=== PATIENT | female | born 2000 | race Caucasian/White ===

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

== ENCOUNTER 2018-12-02 11:04 | Emergency (ER) | payer OTHER ==
[2018-12-02 11:23] VITALS: BP 145/70; PULSE 70; TEMP 98.5; BMI 34.6
[2018-12-02] MEDS ORDERED: IBUPROFEN 400 MG TABLET (FP) PO ONE ×2 (11:56→11:58)
--- NOTE | 2018-12-02 12:02 | PDOC ---
History of Present Illness - General History Source: Patient - History of Present Illness Timing/Duration: reports: constant <Tonia MancillaManuel - Last Filed: 12/02/18 12:39> <Christina Estes - Last Filed: 12/02/18 15:19> - General Chief Complaint: Vaginal Bleeding Stated Complaint: Vaginal Bleeding Time Seen by Provider: 12/02/18 11:45 Past History - Past Medical History Asthma: Yes COPD: No - Immunization History Immunization Up to Date: Yes - Suicide/Smoking/Psychosocial Hx Smoking History: Current every day smoker Have you smoked in the past 12 months: No Number of Cigarettes Smoked Daily: 2 If you are a former smoker, when did you quit?: 2017 Information on smoking cessation initiated: No Hx Alcohol Use: No Drug/Substance Use Hx: Yes (MARIJUANA) <LaurentKirit - Last Filed: 12/02/18 12:39> <Christina Estes - Last Filed: 12/02/18 15:19> - Past Medical History Allergies/Adverse Reactions: Allergies Allergy/AdvReac Type Severity Reaction Status Date / Time No Known Allergies Allergy Verified 12/02/18 11:17 Home Medications: Ambulatory Orders Albuterol Sulfate Inhaler - [Ventolin Hfa Inhaler -] 2 inh PO Q6H PRN 02/20/17 Fluoxetine HCl [Prozac] 20 mg PO DAILY 02/20/17 Montelukast Na [Singulair -] 20 mg PO DAILY 02/20/17 Potassium 0 meq PO DAILY 02/20/17 Ciprofloxacin [Cipro -] 500 mg PO BID #14 tablet 02/21/17 Review of Systems - Review of Systems Constitutional: No: Chills, Fever ABD/GI: Yes: Abdominal cramping. No: Nausea, Vomiting : No: Dysuria, Flank Pain, Hematuria <LaoKirit - Last Filed: 12/02/18 12:39> *Physical Exam - Vital Signs Last Vital Signs Temp Pulse Resp BP Pulse Ox 98.5 F 70 16 145/70 100 12/02/18 11:17 12/02/18 11:17 12/02/18 11:17 12/02/18 11:17 12/02/18 11:17 - Physical Exam General Appearance: Yes: Appropriately Dressed. No: Apparent Distress HEENT: positive: Normal Voice Neck: positive: Supple Respiratory/Chest: negative: Respiratory Distress Gastrointestinal/Abdominal: positive: Soft. negative: Tender Musculoskeletal: negative: CVA Tenderness Integumentary: positive: Dry, Warm Neurologic: positive: Fully Oriented, Alert, Normal Mood/Affect <LaoMaidaJimbo - Last Filed: 12/02/18 12:39> - Vital Signs Last Vital Signs Temp Pulse Resp BP Pulse Ox 98.5 F 70 16 145/70 100 12/02/18 11:17 12/02/18 11:17 12/02/18 11:17 12/02/18 11:17 12/02/18 11:17 <Christina Estes - Last Filed: 12/02/18 15:19> Moderate Sedation - Procedure Monitoring Vital Signs: Procedure Monitoring Vital Signs Temperature 98.5 F 12/02/18 11:17 Pulse Rate 70 12/02/18 11:17 Respiratory Rate 16 12/02/18 11:17 Blood Pressure 145/70 12/02/18 11:17 O2 Sat by Pulse Oximetry (%) 100 12/02/18 11:17 <LaoMaidaMeliaGladys - Last Filed: 12/02/18 12:39> - Procedure Monitoring Vital Signs: Procedure Monitoring Vital Signs Temperature 98.5 F 12/02/18 11:17 Pulse Rate 70 12/02/18 11:17 Respiratory Rate 16 12/02/18 11:17 Blood Pressure 145/70 12/02/18 11:17 O2 Sat by Pulse Oximetry (%) 100 12/02/18 11:17 <Christina Estes - Last Filed: 12/02/18 15:19> ED Treatment Course - ADDITIONAL ORDERS Additional order review: Laboratory Results 12/02/18 11:54 Urine HCG, Qual Negative - Medications Given in the ED: ED Medications Discontinued Medications Generic Name Dose Route Start Last Admin Trade Name Freq PRN Reason Stop Dose Admin Ibuprofen 800 mg 12/02/18 11:56 12/02/18 12:14 Motrin - PO 12/02/18 11:57 800 mg ONCE ONE Administration <Christina Estes - Last Filed: 12/02/18 15:19> Medical Decision Making - Medical Decision Making 12/02/18 11:57 18 yo M, h/o irregular menses, LMP was 11/12, here w/ sharp lower abd pain in setting of menstrual bleeding this am. States she usually gets cramps w/ her menses but that pain today is worse now. Not on control See exam Pelvic pain in setting of m/l menstruation R/o preg -dose of motrin in ED 12/02/18 12:40 Preg test neg. Pain improved w/ motrin. Stable for dc w/ pain control <Kirit Mancilla - Last Filed: 12/02/18 12:39> *DC/Admit/Observation/Transfer <Kirit Mancilla - Last Filed: 12/02/18 12:39> - Attestations Physician Attestion: I reviewed the case with the mid-level practitioner and agree with the mid- level practitioner's assessment, diagnosis and disposition. <Christina Estes - Last Filed: 12/02/18 15:19> Diagnosis at time of Disposition: Menstrual cramps - Discharge Dispostion Disposition: HOME Condition at time of disposition: Improved - Referrals Referrals: Mel Tenorio MD [Primary Care Provider] - - Patient Instructions Printed Discharge Instructions: DI for Dysmenorrhea Additional Instructions: Take motrin every 6 hours for pain as needed and follow-up with your [facility] OPERATOR - Post Discharge Activity
== END 2018-12-02 13:01 | disposition home or self-care (01) ==
LOC: JER 11:04
DX: N94.6 Dysmenorrhea, unspecified (principal)
CPT/HCPCS: 84703; 99282-25

== ENCOUNTER 2019-01-28 08:22 | Emergency (ER) | payer OTHER ==
--- NOTE | 2019-01-28 08:41 | PDOC ---
History of Present Illness - General Chief Complaint: Urinary Problem Stated Complaint: R/O STONES,UTI Time Seen by Provider: 01/28/19 08:27 History Source: Patient Exam Limitations: No Limitations - History of Present Illness Initial Comments: 01/28/19 09:07 18 yo F presents with few hour history of suprapubic pain. She states that it started this morning and the pain persisted while at work which prompted call to EMS. She describes 10/10 constant non-radiating pressure-like suprapubic pain. No alleviating or aggravating factors. Associated with hematuria and dysuria. LMP ended 3 days prior. She is and sexually active with her . Patient admits to douching this weekend. She denies CP , ALMONTE, SOB, nausea, vomiting, fever or chills. Timing/Duration: 4-6 hours Severity: moderate Associated Symptoms: reports: other (hematuria) Past History - Travel Traveled outside of the country in the last 30 days: No Close contact w/someone who was outside of country & ill: No - Past Medical History Allergies/Adverse Reactions: Allergies Allergy/AdvReac Type Severity Reaction Status Date / Time No Known Allergies Allergy Verified 01/28/19 08:36 Home Medications: Ambulatory Orders Albuterol Sulfate Inhaler - [Ventolin HFA Inhaler -] 2 inh PO Q6H PRN 02/20/17 Nitrofurantoin Macrocrystal [Macrodantin -] 100 mg PO BID 5 Days #10 capsule 04/11 Phenazopyridine HCl [Pyridium] 100 mg PO TID #6 tablet 01/28/19 Asthma: Yes COPD: No - Family Disease History Family Disease History: CA: Mother (Leukemia at 26) - Reproductive History LMP Normal: Yes Is Patient Now?: No (#): 0 Para: 0 - Immunization History Immunization Up to Date: Yes - Suicide/Smoking/Psychosocial Hx Smoking History: Current every day smoker Have you smoked in the past 12 months: Yes Number of Cigarettes Smoked Daily: 2 Information on smoking cessation initiated: Yes Hx Alcohol Use: No Drug/Substance Use Hx: No Lives with/in: spouse/SO Review of Systems - Review of Systems Able to Perform ROS?: Yes Is the patient limited Citizen [place] proficient: No : Yes: Dysuria, Hematuria. No: Discharge *Physical Exam - Physical Exam General Appearance: Yes: Appropriately Dressed, Mild Distress HEENT: positive: NILESH, Normal Voice Neck: positive: Supple Respiratory/Chest: positive: Lungs Clear, Normal Breath Sounds. negative: Accessory Muscle Use Cardiovascular: positive: Regular Rhythm, Regular Rate, S1, S2. negative: Edema , JVD, Murmur Vascular Pulses: Dorsalis-Pedis (R): 2+, Doralis-Pedis (L): 2+ Female Pelvic Exam: positive: normal external exam. negative: discharge, lesions Gastrointestinal/Abdominal: positive: Normal Bowel Sounds, Soft. negative: Tender, Organomegaly Musculoskeletal: positive: Normal Inspection. negative: CVA Tenderness Extremity: positive: Normal Range of Motion Integumentary: positive: Normal Color, Dry, Warm Neurologic: positive: quality assurance lab technician II-XII NML intact, Fully Oriented, Alert, Normal Mood/ Affect, Motor Strength 01/26 Medical Decision Making - Medical Decision Making 01/28/19 09:50 18 yo F presents with few hour onset of acute suprapubic pain. UA reveled acute infection most likely acute cystitis. Will given one dose of Macrobid 100mg and Pyridium 200mg PO in ER. Will send script to pharmacy to continue medications. Advised to follow up with primary physician in one week. Instructed if symptoms worsen or fail to improve or develops fever or chills to return to ER. *DC/Admit/Observation/Transfer Diagnosis at time of Disposition: Acute cystitis with hematuria - Discharge Dispostion Disposition: HOME Condition at time of disposition: Stable Decision to Admit order: No - Prescriptions Prescriptions: Nitrofurantoin Macrocrystal [Macrodantin -] 100 mg PO BID 5 Days #10 capsule Phenazopyridine HCl [Pyridium] 100 mg PO TID #6 tablet - Referrals Referrals: Mel Tenorio MD [Primary Care Provider] - - Patient Instructions Printed Discharge Instructions: Acute Cystitis - Post Discharge Activity Forms/Work/School Notes: Back to Work
[2019-01-28 08:44] VITALS: BP 139/92; PULSE 90; TEMP 97.9; BMI 33.7
[2019-01-28 09:01] LABS: HCG,QUALITATIVE URINE Negative
[2019-01-28 09:05] LABS: EPI CELLS 33.4 /HPF (0-5/HPF); PH,URINE 5.5 (5.0-8.0); URINE APPEARANCE TURBID; URINE BACTERIA 1285.7 /hpf (NEGATIVE); URINE BILIRUBIN NEGATIVE (NEGATIVE); URINE CASTS 24 /lpf (0-8); URINE COLOR YELLOW; URINE GLUCOSE (UA) NEGATIVE (NEGATIVE); URINE KETONE NEGATIVE (NEGATIVE); URINE LEUK ESTERASE 1+ (NEGATIVE); URINE NITRITE NEGATIVE (NEGATIVE); URINE PROTEIN 3+ (NEGATIVE); URINE RBC 807 /hpf (0-4); URINE UROBILINOGEN 0.2 mg/dL (0.2-1.0); URINE WBC 114 /hpf (0-5)
[2019-01-28] MEDS ORDERED: PHENAZOPYRIDINE HCL 100 MG TABLET (FP) PO ONE (09:29)
--- NOTE | 2019-01-28 09:38 | PDOC ---
Attending Attestation - Resident Resident Name: Timi Romero - ED Attending Attestation I have performed the following: I have examined & evaluated the patient, The case was reviewed & discussed with the resident, I agree w/resident's findings & plan, Exceptions are as noted - HPI HPI: 01/28/19 09:35 18 F with h/o asthma presents to ED with suprapubic pain and hematuria since this morning. Pt describes a pressure-like sensation in her bladder .Denies flank pain. Denies F/C. Denies vaginal discharge or bleeding. Endorses dysuria and urinary frequency and urgency. Has had one prior UTI in the past. Is sexually active with her only. - Physicial Exam PE: 01/28/19 09:36 "GENERAL: Awake, alert, and fully oriented, in no acute distress. HEAD: No signs of trauma EYES: PERRLA, EOMI, sclera anicteric, conjunctiva clear ENT: Auricles normal inspection, hearing grossly normal, nares patent, oropharynx clear without exudates. Moist mucosa NECK: Nontender, no stepoffs, Normal ROM, supple, no lymphadenopathy, JVD, or masses LUNGS: Breath sounds equal, clear to auscultation bilaterally. No wheezes, and no crackles HEART: Regular rate and rhythm, normal S1 and S2, no murmurs, rubs or gallops ABDOMEN: + suprapubic TTP, No guarding, no rebound. No masses EXTREMITIES: Normal range of motion, no edema. No clubbing or cyanosis. No cords, erythema, or tenderness NEUROLOGICAL: Cranial nerves II through XII intact. 5/5 strength and sensation in all extremities, Normal speech, normal gait, normal cerebellar function SKIN: Warm, Dry, normal turgor, no rashes or lesions noted. : No CMT, no adnexal tenderness or masses, normal discharge, no blood - Medical Decision Making 01/28/19 09:37 18 F with suprapubic pain and hematuria. UA consistent with UTI. Suspect hemorrhagic cystitis. - Macrobid - Pyridium - F/u PMD Pt is well appearing, with normal vitals. Clinically stable for DC at this time. I discussed the physical exam findings, ancillary test results and final diagnoses with the patient. I answered all of the patient's questions. The patient was satisfied with the care received and felt comfortable with the discharge plan and treatment plan. The patient agrees to follow up with the primary care physician within 24-72 hours.
[2019-01-28] MEDS ORDERED: NITROFURANTOIN MACROCRYSTAL 50 MG CAPSULE (FP) PO SCH (09:45)
[2019-01-28] MEDS ORDERED: NITROFURANTOIN MACROCRYSTAL 50 MG CAPSULE (FP) ONE (09:56)
[2019-01-28] MEDS ORDERED: PHENAZOPYRIDINE HCL 100 MG TABLET (FP) ONE (09:57)
== END 2019-01-28 10:08 | disposition home or self-care (01) ==
LOC: JER 08:22
DX: N30.01 Acute cystitis with hematuria (principal)
CPT/HCPCS: 81003; 84703; 87086; 99282-25

== ENCOUNTER 2022-04-30 11:31 | Emergency (ER) | payer OTHER ==
[2022-04-30 11:39] VITALS: BP 117/66; PULSE 82; RESP 18; TEMP 98.1; BMI 35.6
[2022-04-30] MEDS ORDERED: predniSONE 20 MG TABLET (UD) PO ONE (12:46)
[2022-04-30] MEDS ORDERED: diphenhydrAMINE HCL 25 MG CAPSULE (FP) PO ONE ×2 (12:46→12:51)
[2022-04-30] MEDS ORDERED: predniSONE 20 MG TABLET (UD) ONE (12:51)
== END 2022-04-30 13:03 | disposition home or self-care (01) ==
LOC: JERFT 11:31
DX: L50.0 Allergic urticaria (principal)
CPT/HCPCS: 99283-25

== ENCOUNTER 2022-05-02 11:10 | Emergency (ER) | payer OTHER ==
[2022-05-02 11:19] VITALS: BP 115/64; PULSE 86; RESP 18; TEMP 97.6; BMI 24.9
[2022-05-02] MEDS ORDERED: DEXAMETHASONE SOD PHOSPHATE 10 MG/1 ML VIAL PO ONE (12:22)
[2022-05-02] MEDS ORDERED: diphenhydrAMINE HCL 25 MG CAPSULE (FP) PO ONE ×2 (12:22→12:25)
[2022-05-02] MEDS ORDERED: ACETAMINOPHEN 500 MG TABLET (FP) PO ONE (12:22)
[2022-05-02] MEDS ORDERED: DEXAMETHASONE SOD PHOSPHATE 10 MG/1 ML VIAL ONE (12:23)
[2022-05-02] MEDS ORDERED: ACETAMINOPHEN 500 MG TABLET (FP) ONE (12:25)
== END 2022-05-02 12:35 | disposition home or self-care (01) ==
LOC: JERFT 11:10
DX: S03.00XA Dislocation of jaw, unspecified side, initial encounter (principal); T78.40XA Allergy, unspecified, initial encounter; Y99.9 Unspecified external cause status
CPT/HCPCS: 99283-25; J1100

== ENCOUNTER 2023-03-08 10:55 | Emergency (ER) | payer OTHER ==
[2023-03-08 11:16] VITALS: BP 125/76; PULSE 66; RESP 17; TEMP 98.1; BMI 27.4
[2023-03-08] MEDS ORDERED: ALBUTEROL SO4 2.5/IPRATROPIUM 0.5 INH SOL 3 ML VIAL.NEB. NEB ONE ×2 (12:21→12:27)
[2023-03-08] MEDS ORDERED: IBUPROFEN 400 MG TABLET (FP) PO ONE ×2 (13:20→13:23)
== END 2023-03-08 13:30 | disposition home or self-care (01) ==
LOC: JER 10:55
PROC: 3E0F7GC Introduction of Other Therapeutic Substance into Respiratory Tract, Via Natural or Artificial Opening (ICD-10-PCS; principal; 2023-03-08)
DX: R07.89 Other chest pain (principal)
CPT/HCPCS: 71046-TC-FY; 84703; 93005; 93010; 99285-25

== ENCOUNTER 2023-08-06 09:48 | Emergency (ER) | payer OTHER ==
[2023-08-06 09:56] VITALS: BMI 29.2
[2023-08-06] MEDS ORDERED: ACETAMINOPHEN 1000 MG/100 ML BAG IVPB ONE (10:59)
[2023-08-06] MEDS ORDERED: ACETAMINOPHEN INJECTION 100 ML IVPB ONE (11:40)
[2023-08-06 12:15] LABS: EOS % 2.2 % (0-4.5); HEMATOCRIT 40.4 % (32.4-45.2); HEMOGLOBIN 13.3 GM/dL (10.7-15.3); LYMPH % 30.9 % (8-40); MCH 29.8 pg (25.7-33.7); MCHC 32.8 g/dl (32.0-36.0); MEAN CELL VOLUME 90.8 fl (80-96); MEAN PLT VOLUME 7.4 fl (7.5-11.1); MONO % 6.7 % (3.8-10.2); NEUT % 59.2 % (42.8-82.8); PLATELET COUNT 402 10^3/uL (134-434); RBC 4.45 M/mm3 (3.60-5.2); RDW 13.2 % (11.6-15.6); WHITE BLOOD COUNT 9.5 K/mm3 (4.0-10.0)
[2023-08-06 12:22] LABS: INR 0.92 (0.83-1.09); PROTHROMBIN TIME (PATIENT) 10.7 SEC (9.7-13.0)
[2023-08-06 12:26] LABS: CHLORIDE 106 mmol/L (98-107); POTASSIUM 4.1 mmol/L (3.5-5.1); SODIUM 136 mmol/L (136-145)
[2023-08-06 12:28] LABS: CALCIUM 9.1 mg/dL (8.5-10.1); GLUCOSE,RANDOM 80 mg/dL (74-106)
[2023-08-06 12:29] LABS: ANION GAP 4 mmol/L (4-13); BLOOD UREA NITROGEN 18.2 mg/dL (7-18); CO2 25 mmol/L (21-32)
[2023-08-06 12:31] LABS: CREATININE 0.7 mg/dL (0.55-1.3)
[2023-08-06 12:32] LABS: SGOT/AST 15 U/L (15-37); SGPT/ALT 21 U/L (13-61)
[2023-08-06 12:33] LABS: BILIRUBIN,TOTAL 0.2 mg/dL (0.2-1); TOT PROT 7.5 g/dl (6.4-8.2)
[2023-08-06 12:34] LABS: ALK PHOS 92 U/L (45-117)
[2023-08-06 13:18] VITALS: BP 132/67; PULSE 70; RESP 16; TEMP 98.2
[2023-08-06 13:20] LABS: URINE APPEARANCE CLOUDY; URINE BILIRUBIN 2+ (NEGATIVE); URINE COLOR RED; URINE GLUCOSE (UA) NEGATIVE (NEGATIVE); URINE KETONE NEGATIVE (NEGATIVE); URINE LEUK ESTERASE 2+ (NEGATIVE); URINE NITRITE POSITIVE (NEGATIVE); URINE PROTEIN 3+ (NEGATIVE); URINE UROBILINOGEN 0.2 mg/dL (0.2-1.0)
[2023-08-06 13:55] LABS: URINE BACTERIA 3+ /uL (0-1359); URINE RBC TMTC /uL (0-23.9); URINE WBC TMTC /uL (0-25.8)
== END 2023-08-06 13:19 | disposition home or self-care (01) ==
LOC: JER 09:48
PROC: 3E033NZ Introduction of Analgesics, Hypnotics, Sedatives into Peripheral Vein, Percutaneous Approach (ICD-10-PCS; principal; 2023-08-06)
DX: N93.9 Abnormal uterine and vaginal bleeding, unspecified (principal); M54.9 Dorsalgia, unspecified; R10.2 Pelvic and perineal pain; N94.4 Primary dysmenorrhea
CPT/HCPCS: 36415; 80053; 81003; 84702; 84703; 85025; 85610; 85730; 86850; 86900; 86901; 99284-25

== ENCOUNTER 2023-09-10 08:06 | Emergency (ER) | payer OTHER ==
[2023-09-10 08:11] VITALS: BP 110/53; PULSE 81; RESP 18; TEMP 98; BMI 29.4
[2023-09-10 09:03] LABS: BASO % 0.9 % (0-2.0); EOS % 1.8 % (0-4.5); HEMOGLOBIN 12.4 GM/dL (10.7-15.3); LYMPH % 30.9 % (8-40); MCH 29.8 pg (25.7-33.7); MCHC 33.4 g/dl (32.0-36.0); MEAN CELL VOLUME 89.2 fl (80-96); MEAN PLT VOLUME 6.9 fl (7.5-11.1); MONO % 11.6 % (3.8-10.2); NEUT % 54.8 % (42.8-82.8); PLATELET COUNT 320 10^3/uL (134-434); RBC 4.15 M/mm3 (3.60-5.2); RDW 12.9 % (11.6-15.6); WHITE BLOOD COUNT 8.4 K/mm3 (4.0-10.0)
[2023-09-10 09:04] LABS: HCG,QUALITATIVE URINE Positive
[2023-09-10 09:13] LABS: EPI CELLS 19 /uL (0-25.1); HYALINE CASTS 1 /uL (0-3.1); PH,URINE 6.5 (5.0-8.0); URINE APPEARANCE CLEAR; URINE BACTERIA 36 /uL (0-1359); URINE BILIRUBIN NEGATIVE (NEGATIVE); URINE COLOR YELLOW; URINE GLUCOSE (UA) NEGATIVE (NEGATIVE); URINE KETONE NEGATIVE (NEGATIVE); URINE LEUK ESTERASE NEGATIVE (NEGATIVE); URINE NITRITE NEGATIVE (NEGATIVE); URINE PROTEIN 1+ (NEGATIVE); URINE RBC 8 /uL (0-23.9); URINE UROBILINOGEN 0.2 mg/dL (0.2-1.0); URINE WBC 6 /uL (0-25.8)
[2023-09-10 09:19] LABS: CHLORIDE 107 mmol/L (98-107); POTASSIUM 4.4 mmol/L (3.5-5.1); SODIUM 139 mmol/L (136-145)
[2023-09-10 09:21] LABS: CALCIUM 8.7 mg/dL (8.5-10.1)
[2023-09-10 09:22] LABS: ALBUMIN 3.2 g/dl (3.4-5.0); ANION GAP 12 mmol/L (4-13); BLOOD UREA NITROGEN 11.4 mg/dL (7-18); CO2 21 mmol/L (21-32); GLUCOSE,RANDOM 101 mg/dL (74-106)
[2023-09-10 09:25] LABS: CREATININE 0.5 mg/dL (0.55-1.3); SGOT/AST 15 U/L (15-37); SGPT/ALT 26 U/L (13-61)
[2023-09-10 09:27] LABS: BILIRUBIN,TOTAL < 0.1 mg/dL (0.2-1); TOT PROT 6.4 g/dl (6.4-8.2)
[2023-09-10 09:28] LABS: ALK PHOS 70 U/L (45-117)
== END 2023-09-10 12:03 | disposition home or self-care (01) ==
LOC: JER 08:06
DX: O20.9 Hemorrhage in early pregnancy, unspecified (principal); O26.891 Other specified pregnancy related conditions, first trimester; R10.30 Lower abdominal pain, unspecified; Z3A.01 Less than 8 weeks gestation of pregnancy
CPT/HCPCS: 36415; 76817-TC; 80053; 81003; 84702; 84703; 85025; 86850; 86900; 86901; 87086; 99284-25

== ENCOUNTER 2023-09-18 12:11 | Emergency (ER) | payer OTHER ==
[2023-09-18 13:30] LABS: BASO % 0.6 % (0-2.0); EOS % 0.5 % (0-4.5); HEMATOCRIT 38.9 % (32.4-45.2); LYMPH % 12.3 % (8-40); MCH 29.4 pg (25.7-33.7); MCHC 33.4 g/dl (32.0-36.0); MEAN CELL VOLUME 87.9 fl (80-96); MEAN PLT VOLUME 6.9 fl (7.5-11.1); MONO % 7.9 % (3.8-10.2); NEUT % 78.7 % (42.8-82.8); PLATELET COUNT 360 10^3/uL (134-434); RBC 4.43 M/mm3 (3.60-5.2); RDW 12.9 % (11.6-15.6); WHITE BLOOD COUNT 19.4 K/mm3 (4.0-10.0)
[2023-09-18] MEDS ORDERED: ACETAMINOPHEN 500 MG TABLET (FP) PO ONE (13:38)
[2023-09-18 13:48] LABS: POTASSIUM 3.7 mmol/L (3.5-5.1)
[2023-09-18 13:50] LABS: BLOOD UREA NITROGEN 9.7 mg/dL (7-18)
[2023-09-18 13:51] LABS: ALBUMIN 3.7 g/dl (3.4-5.0)
[2023-09-18 13:54] LABS: CREATININE 0.5 mg/dL (0.55-1.3)
[2023-09-18 13:55] LABS: BILIRUBIN,TOTAL 0.4 mg/dL (0.2-1); TOT PROT 7.5 g/dl (6.4-8.2)
[2023-09-18] MEDS ORDERED: ACETAMINOPHEN 500 MG TABLET (FP) ONE (13:55)
[2023-09-18 14:07] LABS: URINE APPEARANCE Cloudy; URINE BILIRUBIN Negative (NEGATIVE); URINE COLOR Yellow; URINE GLUCOSE (UA) Negative (NEGATIVE); URINE KETONE 3+ (NEGATIVE); URINE LEUK ESTERASE Negative (NEGATIVE); URINE NITRITE Negative (NEGATIVE); URINE PROTEIN 3+ (NEGATIVE)
[2023-09-18 14:17] LABS: EPI CELLS 1+ /uL (0-25.1); URINE RBC TMTC /uL (0-23.9); URINE WBC 0-3 /uL (0-25.8)
[2023-09-18] MEDS ORDERED: METOCLOPRAMIDE HCL 10 MG TABLET (FP) PO ONE ×2 (15:29→15:52)
[2023-09-18 16:06] VITALS: BP 127/76; PULSE 83; RESP 16; TEMP 98.1; BMI 29.2
== END 2023-09-18 16:33 | disposition home or self-care (01) ==
LOC: JER 12:11
DX: O20.9 Hemorrhage in early pregnancy, unspecified (principal); Z3A.01 Less than 8 weeks gestation of pregnancy; Z20.822 Contact with and (suspected) exposure to COVID-19
CPT/HCPCS: 0241U-QW; 36415; 76817-TC; 80053; 81003; 84702; 85025; 99284-25

== ENCOUNTER 2023-10-02 09:50 | Emergency (ER) | payer OTHER ==
[2023-10-02 10:05] VITALS: BP 105/78; PULSE 90; RESP 17; TEMP 97.9; BMI 30.7
== END 2023-10-02 11:54 | disposition left against medical advice (07) ==
LOC: JER 09:50
DX: R10.9 Unspecified abdominal pain (principal)
CPT/HCPCS: 99281-25

== ENCOUNTER 2025-04-26 09:36 | Emergency (ER) | payer OTHER ==
[2025-04-26 09:48] VITALS: BP 119/56; PULSE 80; RESP 18; TEMP 98.1; BMI 30.2
[2025-04-26 10:15] LABS: EPI CELLS 17 /uL (0-25.1); HCG,QUALITATIVE URINE Negative; HYALINE CASTS 0 /uL (0-3.1); URINE APPEARANCE CLEAR; URINE BACTERIA 211 /uL (0-1359); URINE BILIRUBIN NEGATIVE (NEGATIVE); URINE COLOR YELLOW; URINE GLUCOSE (UA) NEGATIVE (NEGATIVE); URINE KETONE NEGATIVE (NEGATIVE); URINE LEUK ESTERASE NEGATIVE (NEGATIVE); URINE NITRITE NEGATIVE (NEGATIVE); URINE PROTEIN 2+ (NEGATIVE); URINE RBC 14 /uL (0-23.9); URINE UROBILINOGEN 0.2 mg/dL (0.2-1.0); URINE WBC 5 /uL (0-25.8)
[2025-04-26 23:32] LABS: HIV INTERPRETATION NEGATIVE (NEGATIVE)
[2025-04-27 20:51] LABS: HCV DIAGNOSTIC IN-HOUSE W/RFLX NON-REACTIVE (NONREACTIVE)
== END 2025-04-26 12:04 | disposition home or self-care (01) ==
LOC: JER 09:36 → JERFT 09:36
DX: Z32.02 Encounter for pregnancy test, result negative (principal)
CPT/HCPCS: 36415; 81003; 84703; 86780; 86803; 87086; 87389; 87491; 87591; 99283-25